=== PATIENT | female | born 1955 | race Caucasian/White ===

== ENCOUNTER 2019-10-01 08:48 | Emergency (ER) | payer BC ==
--- NOTE | 2019-10-01 08:51 | UC ---
Truncal Trauma HPI - HPI Summary HPI Summary: 64 yo female presents with LEFT rib pain. She tells me that 1 week ago she sustained a mechanical fall and her tried to catch her and squeezed her left ribs. Has had pain in this area since that time. Is most concerned today because she has had left abdominal pain and feels a little bloated. Has been taking tylenol with little relief. She is eating and drinking well. Denies SOB, cough, chest pain, n/v/d, dysuria, hematuria. No bruising noted. - History Of Current Complaint Stated Complaint: LEFT RIB PAIN Time Seen by Provider: 10/01/19 08:49 Hx Obtained From: Patient Onset/Duration: Sudden Onset Severity Initially: Moderate Severity Currently: Moderate Pain Intensity: 5 Pain Scale Used: 0-10 Numeric - Allergies/Home Medications Allergies/Adverse Reactions: Allergies Allergy/AdvReac Type Severity Reaction Status Date / Time Penicillins Allergy Rash Verified 10/01/19 09:01 ENVIRONMENTAL Allergy Severe Congestion Uncoded 10/01/19 09:01 Home Medications: Home Medications Simvastatin [Zocor 5 MG-] 40 mg PO DAILY 10/22/12 [History Confirmed 10/01/19] glipiZIDE TAB* [Glucotrol TAB*] 10 tab PO DAILY 10/22/12 [History Confirmed ] metFORMIN* [Glucophage*] 1,500 mg PO DAILY 10/22/12 [History Confirmed 10/01/19] Meloxicam [Mobic] 15 mg PO DAILY 10/01/19 [History Confirmed 10/01/19] PMH/Surg Hx/FS Hx/Imm Hx Endocrine History: Diabetes, Dyslipidemia - Surgical History Surgical History: None - Family History Known Family History: Positive: Diabetes - Social History Lives: With Family Alcohol Use: None Substance Use Type: None Smoking Status (MU): Never Smoked Tobacco Review of Systems All Other Systems Reviewed And Are Negative: No Constitutional: Positive: Negative Skin: Positive: Negative Respiratory: Positive: Negative Cardiovascular: Positive: Negative Gastrointestinal: Positive: Abdominal Pain Neurovascular: Positive: Negative Musculoskeletal: Positive: Other: - Left rib pain Neurological/Mental Status: Positive: Negative Psychological: Positive: Negative Physical Exam - Summary Physical Exam Summary: GENERAL: NAD. WDWN. No pain distress. SKIN: No rashes, sores, lesions, or open wounds. CHEST: No accessory muscle use. Breathing comfortably and in no distress. CV: Pulses intact femoral b/l. Cap refill <2seconds MSK: LEFT RIBS: Severe ttp about 10th rib anterior-midaxillary. Pain with bending and truncal twisting. ABDOMEN: Soft. No rebound or guarding. Moderate LUQ and left umbilical ttp. No ecchymosis or bloating noted. BACK: NTTP. No CVA tenderness. No ecchymosis. NEURO: Alert. PSYCH: Age appropriate behavior. Triage Information Reviewed: Yes Vital Signs: Vital Signs: Temp Pulse Resp BP Pulse Ox 97.9 F 82 16 138/77 100 10/01/19 08:54 10/01/19 08:54 10/01/19 08:54 10/01/19 08:54 10/01/19 08:54 Vital Signs Reviewed: Yes Diagnostics - Radiology RIB and CXR Radiology Interpretation Completed By: Radiologist Summary of Radiographic Findings: IMPRESSION: Nondisplaced fractures of the left 10th, ninth and eighth ribs. Truncal Trauma Course/Dx - Course Course Of Treatment: XR as above. Discussed with pt that I am concerned about her abdominal pain. Her vitals are stable, her injury was a week ago, and she has no signs of intra-abdominal injury other than tenderness. This could be referred pain from her fractured ribs, but her abdominal pain seems out of proportion for what I would expect for rib fractures, thus I recommended she go to the ER for further evaluation. I called [facility] and spoke with Teresa NAYAK regarding pt. will drive her. - Differential Dx/Diagnosis Provider Diagnosis: Rib fractures, Left sided abdominal pain Discharge ED - Sign-Out/Discharge Documenting (check all that apply): Patient Departure All imaging exams completed and their final reports reviewed: Yes - Discharge Plan Condition: Stable Disposition: HOME-RECOMMEND TO ED Referrals: Rosario Whalen NP [Primary Care Provider] - Additional Instructions: I spoke to [facility] and they are expecting you - please go there now for your rib fractures and abdominal pain - Billing Disposition and Condition Condition: STABLE Disposition: Home-Recommend to ED
[2019-10-01 09:00] VITALS: BP 138/77
== END 2019-10-01 09:35 | disposition home health service (06) ==
LOC: UCCORT 08:48
DX: S22.42XA Multiple fractures of ribs, left side, initial encounter for closed fracture (principal); E11.9 Type 2 diabetes mellitus without complications; E78.5 Hyperlipidemia, unspecified; Z88.0 Allergy status to penicillin; Z91.09 Other allergy status, other than to drugs and biological substances; W18.30XA Fall on same level, unspecified, initial encounter; Y92.9 Unspecified place or not applicable; Z79.899 Other long term (current) drug therapy; Z79.84 Long term (current) use of oral hypoglycemic drugs
CPT/HCPCS: 99212; G0463